=== PATIENT | male | born 1950 | race Caucasian/White ===

== ENCOUNTER 2016-11-15 08:24 | Outpatient (CLI) | payer MEDICARE, BC ==
[2016-11-15 17:54] LABS: BILIRUBIN,URINE NEGATIVE (NEGATIVE); PH,URINE 5.5 PH (5.0-7.5)
[2016-11-15 18:14] LABS: CHOL/HDL RATIO 3.4 (<5.0); CHOLESTEROL 210 mg/dL; HDL CHOLESTEROL 62 mg/dL; LDL/HDL RATIO 2.2 (<3.6); TRIGLYCERIDES 64 mg/dL; VLDL CHOLESTEROL 13 mg/dL
[2016-11-15 18:15] LABS: ALBUMIN/GLOBULIN RATIO 1.4 (1.0-2.2); BUN - BLOOD UREA NITROGEN 17 mg/dL (6-20); CALCIUM 9.1 mg/dL (8.5-10.3); CARBON DIOXIDE - CO2 27 mmol/L (21-32); CHLORIDE 104 mmol/L (101-111); CREATININE 0.9 mg/dL (0.6-1.2); GFR - MDRD 84 (>89); GLUCOSE 105 mg/dL (70-100); POTASSIUM 4.1 mmol/L (3.5-5.0); SODIUM 139 mmol/L (135-145); TOTAL PROTEIN 6.6 g/dL (6.7-8.2)
[2016-11-15 18:16] LABS: HCT - HEMATOCRIT 44.2 % (42.0-52.0); HGB - HEMOGLOBIN 14.7 g/dL (14.0-18.0); MEAN CORPUSCULAR HGB CONC 33.1 g/dL (32.0-36.0); MEAN CORPUSCULAR VOLUME 96.6 fL (80.0-94.0); MEAN PLATELET VOLUME 9.3 fL (7.4-11.4); RED BLOOD COUNT 4.58 10^6/uL (4.70-6.10)
[2016-11-15 18:29] LABS: UR CULTURE IF IND NOT INDICATED; WBC,URINE 0-3 /HPF (0-3)
[2016-11-15 18:36] LABS: PT - PROTHROMBIN TIME 11.3 secs (9.9-12.6)
== END 2016-11-15 08:25 | disposition home or self-care (01) ==
LOC: LAB.S 08:24
PROVIDERS: ATTEND Orthopaedic Surgery
DX: Z01.818 Encounter for other preprocedural examination (principal); N40.0 Benign prostatic hyperplasia without lower urinary tract symptoms; Z13.220 Encounter for screening for lipoid disorders; Z13.1 Encounter for screening for diabetes mellitus
CPT/HCPCS: 36415; 80053; 80061; 81001; 85027; 85610; 85651; 86140; 93005; G0103; 84153; 85025; 87086

== ENCOUNTER 2016-11-15 08:33 | Outpatient (CLI) | payer MEDICARE, BC | END 2016-11-15 08:34 | disposition home or self-care (01) | LOC: RT.S 08:33 | PROVIDERS: ATTEND Orthopaedic Surgery | DX: Z01.810 Encounter for preprocedural cardiovascular examination (principal) | CPT/HCPCS: 93005 ==

== ENCOUNTER 2016-12-31 11:00 | Outpatient (CLI) | payer BC, MEDICARE ==
--- NOTE | 2016-12-31 13:18 | XRAY Report ---
THREE-VIEW RIGHT FOOT: 12/31/2016 CLINICAL INDICATION: Pain. FINDINGS: AP, lateral, oblique views of the right foot demonstrate mild degenerative changes. There is no evidence of acute fracture or dislocation. No radiopaque foreign body is seen in the soft tis sues. IMPRESSION: MILD DEGENERATIVE CHANGES. JOB #: [id number] EXT JOB #:[id number]
== END 2016-12-31 11:01 | disposition home or self-care (01) ==
LOC: DI.S 11:00
PROVIDERS: ATTEND Nurse Practitioner Family
DX: M19.071 Primary osteoarthritis, right ankle and foot (principal)

== ENCOUNTER 2020-06-03 12:10 | Outpatient (CLI) | payer MEDICARE, BC | END 2020-06-03 12:11 | disposition home or self-care (01) | LOC: COV 12:10 | PROVIDERS: ATTEND Family Medicine | DX: R05 Cough (principal); Z20.828 Contact with and (suspected) exposure to other viral communicable diseases; R53.83 Other fatigue ==

== ENCOUNTER 2022-04-14 08:49 | Day surgery (SDC) | payer MEDICARE, BC ==
[2022-04-14] MEDS ORDERED: LACTATED RINGERS 1,000 ML IV ONE ×2 (09:11→10:59)
[2022-04-14] MEDS ORDERED: LIDOCAINE-PF 2% 10 ML AMP SUBQ ONE (10:09)
[2022-04-14] MEDS ORDERED: PROPOFOL 500 MG/50 ML 500 MG/50 ML VIAL ONE (10:10)
--- NOTE | 2022-04-14 10:12 | ANESTHESIA ---
Pre-Anesthesia VS, & Labs - Diagnosis POSITIVE COLOGAURD, EGD - Procedure EGD, COLONOSCOPY Vital Signs: Temp Pulse Resp BP Pulse Ox O2 Flow Rate 36.5 C 68 20 140/83 H 98 0 04/14/22 09:12 04/14/22 09:12 04/14/22 09:12 04/14/22 09:12 04/14/22 09:12 04/14/22 09:12 Height: 6 ft 3 in Weight (kg): 119 kg Body Mass Index: 32.8 BMI Classification: Obese - NPO >8 hours Home Medications and Allergies Home Medications: Ambulatory Orders Rosuvastatin Calcium [Crestor] 5 mg PO DAILY 04/13/22 Biotin 1,000 mcg PO DAILY 01/31/13 Ibuprofen [Advil] 400 mg PO DAILY PRN 01/31/13 Saw [place] Fruit/Zinc Picoli [Saw [place] Capsule] 3 each PO DAILY 01/31/13 Albuterol Sulfate [Proair Hfa] 8.5 gm IH Q6HR PRN 01/09/14 Finasteride 5 mg PO DAILY 01/09/14 Glucosamine/MSM/Chondroitin A [Tzrxloietgd-Edufoyhhz-OHW Cplt] 1 each PO DAILY 01/09/14 Zinc Gluconate [Zinc] 30 mg PO DAILY 01/09/14 Rosuvastatin Calcium [Crestor] 5 mg PO DAILY 04/13/22 Allergies/Adverse Reactions: Allergies Allergy/AdvReac Type Severity Reaction Status Date / Time ciprofloxacin Allergy Intermediate Rash Verified 04/14/22 09:18 gluten AdvReac Unknown Verified 04/14/22 09:18 Tape Allergy Intermediate Rash Uncoded 04/14/22 09:18 Anes History & Medical History - Anesthetic History Anesthesia Complications: reports: No previous complications Family history of Anesthesia Complications: Denies Family history of Malignant Hyperthermia: Denies - Medical History Cardiovascular: reports: High cholesterol, Murmur (MITRAL VALVE PROLAPSE) Pulmonary: reports: Asthma, Other Gastrointestinal: reports: GERD, Other (+ COLOGAURD) Urinary: reports: Benign prostate hypertrophy Neuro: reports: None Musculoskeletal: reports: Osteoarthritis, Gout, Chronic back pain, Other (CSPINE FUSION C5-C7) Endocrine/Autoimmune: reports: None Skin: reports: Rosacea, Other Smoking Status: Never smoker Psychosocial: reports: Alcohol History of Cancer?: No - Surgical History General: reports: Colonoscopy Eyes Ears Nose Throat (EENT): reports: Tonsil/Adenoidectomy Orthopedic: reports: Hip replacement, Knee replacement, Shoulder arthroplasty, Spine surgery Dermatologic: reports: Skin cancer surgery Exam General: Alert, Oriented x3, Cooperative, No acute distress Dental: WNL, Other (GUNTER) Mouth Openin Fingerbreadth Neck Mobility: Reduced Mallampati classification: II Thyromental Distance: 4-6 cm Respiratory: Lungs clear Cardiovascular: Regular rate Mental/Cognitive Status: Alert/Oriented X3, Normal for patient Cognitive Status: Within normal limits Plan Anesthesia Type: General, Total IV Consent for Procedure(s) Verified and Reviewed: Yes Code Status: Attempt Resuscitation ASA classification: 2-Mild systemic disease Is this case an emergency?: No
[2022-04-14] MEDS ORDERED: ePHEDrine 50 MG/ML VIAL IVP ONE (10:46)
--- NOTE | 2022-04-14 11:05 | ANESTHESIA POST OP EVALUATION ---
Anesthesia Post Eval - Post Anesthesia Eval Vitals: Last Vital Signs Temp 36.5 C 04/14/22 11:00 Pulse 82 04/14/22 11:00 Resp 16 04/14/22 11:00 BP 101/58 L 04/14/22 11:00 Pulse Ox 100 04/14/22 11:00 O2 Flow Rate 0 04/14/22 09:12 CV Function Including HR & BP: Stable Pain Control: Satisfactory Nausea & Vomiting: Negative Mental Status: Baseline Respiratory Status: Airway Patent Hydration Status: Satisfactory Anesthesia Complications: None
[2022-04-14 11:57] VITALS: BP 124/63
== END 2022-04-14 08:50 | disposition home or self-care (01) ==
LOC: SDS 08:49
PROVIDERS: ATTEND Surgery
DX: R19.5 Other fecal abnormalities (principal); K64.8 Other hemorrhoids; K21.9 Gastro-esophageal reflux disease without esophagitis; K44.9 Diaphragmatic hernia without obstruction or gangrene; R13.10 Dysphagia, unspecified; E66.9 Obesity, unspecified; Z68.32 Body mass index [BMI] 32.0-32.9, adult; J45.909 Unspecified asthma, uncomplicated
CPT/HCPCS: 43235; 45378; J7120

== ENCOUNTER 2022-07-13 09:42 | Outpatient (CLI) | payer MEDICARE, BC ==
--- NOTE | 2022-07-13 16:01 | Ultrasound Report ---
PROCEDURE: Head or Neck Soft Tissue INDICATIONS: MASS OF NECK TECHNIQUE: Real time scanning was performed of the neck region of interest, with image documentation . COMPARISON: None. FINDINGS: Patient's palpable focus of concern is the left submandibular gland and there is no abnorma lity of the left submandibular gland or other regional abnormality. The right submandibular gland is comparable in size and appearance to the left. IMPRESSION: Normal exam. Patient's focus of palpable concern is a normal left subarticular gland. Reviewed by: Keegan Schrader MD on 07/13/2022 4:00 PM PST Approved by: Keegan Schrader MD on 07/13/2022 4:00 PM PST Station ID: [id number]
== END 2022-07-13 09:43 | disposition home or self-care (01) ==
LOC: DI 09:42
PROVIDERS: ATTEND Nurse Practitioner Family
DX: R22.1 Localized swelling, mass and lump, neck (principal)

== ENCOUNTER 2023-04-15 08:00 | Outpatient (CLI) | payer MEDICARE, BC ==
--- NOTE | 2023-04-16 22:48 | XRAY Report ---
PROCEDURE: Foot 2 View RT INDICATIONS: RIGHT FOOT PAIN TECHNIQUE: 2 views of the foot were acquired. COMPARISON: 12/10/2021 FINDINGS: Bones: No acute fractures or dislocations. Remote fractures can be seen involving the fourth and fi fth metatarsals. No suspicious bony lesions. Incidental note is made of a bipartite medial sesamoid b one. Age-appropriate degenerative changes are seen. Toe alignment abnormalities can be seen. A plantar calcaneal spur is incidentally noted. Soft tissues: There is calcification seen involving the distal Achilles tendon. IMPRESSION: No acute plain film abnormality is seen. Please correlate with focal tenderness. If there is point tenderness (or other clinical concern for a fracture not seen on these plain films) then please consider a dedicated CT study or a short term fo llow up plain film series for further evaluation. Remote fractures can be seen involving the fourth and fifth metatarsals. Toe alignment abnormalities are seen. There is calcification seen involving the distal Achilles tendon, which is attributed to remote teari ng. Reviewed by: Luca Starr MD on 04/16/2023 9:46 PM [place] Approved by: Luca Starr MD on 04/16/2023 9:46 PM [facility] Station ID: [id number]
--- NOTE | 2023-04-16 22:51 | XRAY Report ---
PROCEDURE: Cervical Spine 2 View INDICATIONS: NECK PAIN/FALL TECHNIQUE: 4 view(s) of the cervical spine were acquired. COMPARISON: None. FINDINGS: Bones: No fractures or dislocations to the superior T1 level. The lateral masses of C1 appear intac t on the odontoid view. No suspicious bony lesions. Anterior fusion plate can be seen from C5 through C7. There is corpectomy with a a fibular strut fly t at C6. No findings of hardware failure or hardware loosening can be seen. At least moderate disc space narrowing can be seen C3-4 and at C4-C5. Soft tissues: No prevertebral soft tissue swelling. The visualized pulmonary apices are unremarkab le. IMPRESSION: No acute plain film abnormality is seen. Intact appearing C5-C7 anterior fixation hardware. Focal degenerative change can be seen at C3-C4 and at C4-C5. If it would be helpful for clinical management decision making, please consider a dedicated cervical spine MRI for further evaluation (assuming that there is no contraindication). Reviewed by: Luca Starr MD on 04/16/2023 9:50 PM [facility] Approved by: Luca Starr MD on 04/16/2023 9:50 PM [facility] Station ID: [id number]
== END 2023-04-15 23:59 | disposition home or self-care (01) ==
LOC: DI.S 08:00
PROVIDERS: ATTEND Physician Assistant
DX: M47.812 Spondylosis without myelopathy or radiculopathy, cervical region (principal); M79.671 Pain in right foot

== ENCOUNTER 2023-05-26 08:39 | Outpatient (CLI) | payer MEDICARE, BC ==
[2023-05-26 14:45] LABS: BASOPHILS % (AUTO) 0.6 %; EOSINOPHILS # (AUTO) 0.2 10^3/uL (0.0-0.7); EOSINOPHILS % (AUTO) 2.9 %; HCT - HEMATOCRIT 45.7 % (42.0-52.0); HGB - HEMOGLOBIN 14.6 g/dL (14.0-18.0); LYMPHOCYTES # (AUTO) 1.3 10^3/uL (1.5-3.5); LYMPHOCYTES % (AUTO) 17.3 %; MEAN CORPUSCULAR HGB CONC 31.9 g/dL (32.0-36.0); MEAN CORPUSCULAR VOLUME 100.2 fL (80.0-94.0); MEAN PLATELET VOLUME 10.9 fL (7.4-11.4); MONOCYTES # (AUTO) 0.5 10^3/uL (0.0-1.0); MONOCYTES % (AUTO) 6.4 %; NEUTROPHILS # (AUTO) 5.2 10^3/uL (1.5-6.6); NEUTROPHILS % (AUTO) 72.5 %; PLT - PLATELET COUNT 250 10^3/uL (130-450); RED BLOOD COUNT 4.56 10^6/uL (4.70-6.10); RED CELL DISTRIBUTION WIDTH 13.4 % (12.0-15.0); WHITE BLOOD COUNT 7.2 x10^3/uL (4.8-10.8)
[2023-05-26 15:33] LABS: ALBUMIN/GLOBULIN RATIO 1.5 (1.0-2.2); BILIRUBIN,TOTAL 0.5 mg/dL (0.2-1.0); CALCIUM 9.1 mg/dL (8.5-10.3); CREATININE 0.9 mg/dL (0.6-1.3); POTASSIUM 4.4 mmol/L (3.5-4.5); TOTAL PROTEIN 6.7 g/dL (6.4-8.9)
== END 2023-05-26 08:40 | disposition home or self-care (01) ==
LOC: LAB.S 08:39
PROVIDERS: ATTEND Internal Medicine
DX: D64.9 Anemia, unspecified (principal); M62.838 Other muscle spasm
CPT/HCPCS: 36415; 80053; 85025

== ENCOUNTER 2023-06-04 09:30 | Outpatient (CLI) | payer MEDICARE, BC ==
--- NOTE | 2023-06-05 11:40 | CT Report ---
PROCEDURE: HEAD WO INDICATIONS: HEADACHE TECHNIQUE: Noncontrast 4.5 mm thick angled axial sections acquired from the foramen magnum to the vertex. For r adiation dose reduction, the following was used: automated exposure control, adjustment of mA and/or kV according to patient size. COMPARISON: None. FINDINGS: Image quality: Excellent. CSF spaces: Basal cisterns are patent. No extra-axial fluid collections. Ventricles are normal in size and shape. Brain: No midline shift. No intracranial masses or hemorrhage. Ashraf-white matter interface is norm al. Vasculature: Calcification of the bilateral cavernous carotids. Skull and face: Calvarium and visualized facial bones are intact, without suspicious lesions. Sinuses: Trace mucosal thickening in the bilateral maxillary and ethmoid sinuses. Remainder of the si nuses and mastoids are clear. IMPRESSION: 1.No acute intracranial pathology. 2.Trace mucosal thickening in the bilateral maxillary and ethmoid sinuses. Reviewed by: Ilana Molina MD on 06/05/2023 11:39 AM PST Approved by: Ilana Molina MD on 06/05/2023 11:39 AM PST Station ID: [id number]
--- NOTE | 2023-06-05 11:45 | CT Report ---
PROCEDURE: CERVICAL SPINE WO INDICATIONS: NECK PAIN TECHNIQUE: Noncontrast 3 mm thick sections acquired from the skull base to the T4 level. Sagittal and coronal r eformats were then constructed. For radiation dose reduction, the following was used: automated exp osure control, adjustment of mA and/or kV according to patient size. COMPARISON: MRI cervical spine on July 17, 2021. FINDINGS: Image quality: Excellent. Bones: No fractures or dislocations. Anterior fusion hardware from C5 to C7 is intact with no perih ardware lucency to suggest hardware loosening. Straightening of the normal cervical lordosis. Moderat e multilevel degenerative changes of the spine with anterior osteophytosis, disc height loss and face t/uncal hypertrophy. Multilevel osseous neural foraminal narrowing. Visualized superior ribs are inta ct. Soft tissues: Prevertebral soft tissues are normal in thickness. No paravertebral hematomas. No ap ical pneumothoraces. Thyroid is unremarkable. IMPRESSION: 1.No acute, displaced fracture or traumatic subluxation. If clinical symptoms persist, consider MRI f or further evaluation. 2.Anterior fusion hardware from C5 to C7 is intact without complication. 3.Moderate multilevel degenerative changes of the spine, as described above. Reviewed by: Ilana Molina MD on 06/05/2023 11:44 AM PST Approved by: Ilana Molina MD on 06/05/2023 11:44 AM PST Station ID: [id number]
== END 2023-06-04 09:31 | disposition home or self-care (01) ==
LOC: DI 09:30
PROVIDERS: ATTEND Internal Medicine
DX: M47.812 Spondylosis without myelopathy or radiculopathy, cervical region (principal); G44.309 Post-traumatic headache, unspecified, not intractable

== ENCOUNTER 2023-06-13 10:01 | Outpatient (CLI) | payer MEDICARE, BC | END 2023-06-13 10:02 | disposition home or self-care (01) | LOC: LAB.S 10:01 | PROVIDERS: ATTEND Internal Medicine | DX: D64.9 Anemia, unspecified (principal) | CPT/HCPCS: 36415; 82607; 82728; 83540; 84466 ==

== ENCOUNTER 2023-06-27 10:34 | Outpatient (CLI) | payer MEDICARE, BC ==
[2023-06-27 15:02] LABS: ABSOLUTE RETICS # AUTO 0.057 10^6/uL (0.020-0.110); RED BLOOD COUNT 4.71 10^6/uL (4.70-6.10)
[2023-06-27 15:50] LABS: FERRITIN 105.5 ng/mL (23.9-336.2)
== END 2023-06-27 10:35 | disposition home or self-care (01) ==
LOC: LAB.S 10:34
PROVIDERS: ATTEND Internal Medicine
DX: D53.9 Nutritional anemia, unspecified (principal)
CPT/HCPCS: 36415; 82607; 82728; 83090; 83540; 83921; 84466; 85045

== ENCOUNTER 2023-06-29 12:34 | Outpatient (CLI) | payer MEDICARE, BC | END 2023-06-29 12:35 | disposition home or self-care (01) | LOC: DI 12:34 | PROVIDERS: ATTEND Internal Medicine | DX: I08.0 Rheumatic disorders of both mitral and aortic valves (principal); I77.810 Thoracic aortic ectasia | CPT/HCPCS: 93307 ==

== ENCOUNTER 2023-06-29 13:39 | Outpatient (CLI) | payer MEDICARE, BC ==
--- NOTE | 2023-06-29 17:09 | Ultrasound Report ---
PROCEDURE: Carotid Doppler Complete INDICATIONS: VERTIGO TECHNIQUE: Color and pulse Doppler interrogation was performed of both carotid systems, with image documentation and velocity measurements. COMPARISON: None. FINDINGS: Right side: Brachial blood pressure: 152/92 mm Hg. Common carotid artery peak systolic velocity: 56.95 cm/sec. Internal carotid artery peak systolic velocity: 80.25 cm/sec. Internal carotid artery end diastolic velocity: 27.18 cm/sec. External carotid artery peak systolic velocity: 75.48 cm/sec. ICA/CCA peak systolic ratio: 1.4 . Ashraf scale imaging description: Mild atherosclerotic plaques are seen at the carotid bifurcation Percent internal carotid artery stenosis: Less than 50%. Vertebral artery: Flow direction is antegrade. Left side: Brachial blood pressure: 135/97 mm Hg. Common carotid artery peak systolic velocity: 69.9 cm/sec. Internal carotid artery peak systolic velocity: 70.3 cm/sec. Internal carotid artery end diastolic velocity: 23.7 cm/sec. External carotid artery peak systolic velocity: 59.97 cm/sec. ICA/CCA peak systolic ratio: 1.0 . Ashraf scale imaging description: Mild atherosclerotic plaques are noted at the carotid bifurcation. Percent internal carotid artery stenosis: Less than 50%. Vertebral artery: Flow direction is antegrade. IMPRESSION: 1. In the right internal carotid artery, there is less than 50 percent stenosis based on peak systoli c velocity criteria. 2. In the left internal carotid artery, there is less than 50 percent stenosis based on peak systolic velocity criteria. 3. Antegrade blood flow within the right vertebral artery. 4. Antegrade blood flow within the left vertebral artery. The estimate of stenosis included in the report of the imaging study was calculated using the [facility]-end orsed standards of carotid artery stenosis. Reviewed by: Tacos Isidro MD on 06/29/2023 5:07 PM PST Approved by: Tacos Isidro MD on 06/29/2023 5:07 PM PST Station ID: [id number]
== END 2023-06-29 13:40 | disposition home or self-care (01) ==
LOC: DI 13:39
PROVIDERS: ATTEND Internal Medicine
DX: R42 Dizziness and giddiness (principal); I65.23 Occlusion and stenosis of bilateral carotid arteries; I08.0 Rheumatic disorders of both mitral and aortic valves; I77.810 Thoracic aortic ectasia
CPT/HCPCS: 93307; 93880

== ENCOUNTER 2023-07-23 08:00 | Outpatient (CLI) | payer MEDICARE, BC ==
--- NOTE | 2023-07-23 13:41 | XRAY Report ---
PROCEDURE: Chest 2V INDICATIONS: ACUTE COUGH TECHNIQUE: 2 views of the chest were acquired. COMPARISON: None. FINDINGS: Surgical changes and devices: None. Lungs and pleura: No pleural effusions or pneumothorax. Lungs are clear. Mediastinum: Mediastinal contours appear normal. Heart size is normal. Bones and chest wall: No suspicious bony lesions. Overlying soft tissues appear unremarkable. IMPRESSION: No acute cardiopulmonary process. Reviewed by: Sarah Dave MD on 07/23/2023 1:40 PM PST Approved by: Sarah Dave MD on 07/23/2023 1:40 PM [facility] Station ID: [id number]
== END 2023-07-23 23:59 | disposition home or self-care (01) ==
LOC: DI.S 08:00
PROVIDERS: ATTEND Registered Nurse
DX: R05.1 Acute cough (principal)

== ENCOUNTER 2023-08-24 09:54 | Outpatient (CLI) | payer MEDICARE, BC ==
[2023-08-24 15:00] LABS: BASOPHILS # (AUTO) 0.1 10^3/uL (0.0-0.1); EOSINOPHILS # (AUTO) 0.2 10^3/uL (0.0-0.7); EOSINOPHILS % (AUTO) 3.3 %; HCT - HEMATOCRIT 46.5 % (42.0-52.0); HGB - HEMOGLOBIN 14.5 g/dL (14.0-18.0); LYMPHOCYTES # (AUTO) 1.2 10^3/uL (1.5-3.5); MEAN CORPUSCULAR HEMOGLOBIN 30.9 pg (27.0-31.0); MEAN CORPUSCULAR HGB CONC 31.2 g/dL (32.0-36.0); MEAN CORPUSCULAR VOLUME 98.9 fL (80.0-94.0); MEAN PLATELET VOLUME 10.7 fL (7.4-11.4); MONOCYTES # (AUTO) 0.4 10^3/uL (0.0-1.0); MONOCYTES % (AUTO) 6.8 %; NEUTROPHILS # (AUTO) 4.4 10^3/uL (1.5-6.6); NEUTROPHILS % (AUTO) 69.7 %; PLT - PLATELET COUNT 253 10^3/uL (130-450); RED CELL DISTRIBUTION WIDTH 13.5 % (12.0-15.0); WHITE BLOOD COUNT 6.3 x10^3/uL (4.8-10.8)
[2023-08-24 15:47] LABS: THYROID STIMULATING HORMONE 1.78 uIU/mL (0.34-5.60)
[2023-08-24 15:50] LABS: ALBUMIN/GLOBULIN RATIO 1.6 (1.0-2.2); ALKALINE PHOSPHATASE 53 IU/L (42-121); ALT ALANINE AMINOTRANSFERASE 37 IU/L (10-60); AST ASPARTATE AMINOTRANSFERASE 38 IU/L (10-42); BILIRUBIN,TOTAL 0.6 mg/dL (0.2-1.0); BUN - BLOOD UREA NITROGEN 19 mg/dL (6-20); CALCIUM 9.5 mg/dL (8.5-10.3); CARBON DIOXIDE - CO2 30 mmol/L (21-32); CHLORIDE 106 mmol/L (101-111); CREATININE 0.8 mg/dL (0.6-1.3); CRP - C-REACTIVE PROTEIN < 0.5 mg/dL (<0.5); GFR - MDRD 94 (>89); GLUCOSE 100 mg/dL (74-104); LIPASE 22 U/L (11-82); POTASSIUM 4.7 mmol/L (3.5-4.5); SODIUM 139 mmol/L (135-145); TOTAL PROTEIN 6.5 g/dL (6.4-8.9)
== END 2023-08-24 09:55 | disposition home or self-care (01) ==
LOC: DI.S 09:54
PROVIDERS: ATTEND Registered Nurse
DX: R10.11 Right upper quadrant pain (principal)
CPT/HCPCS: 36415; 80053; 83690; 84443; 85025; 86140

== ENCOUNTER 2023-08-30 19:41 | Outpatient (CLI) | payer MEDICARE, BC ==
--- NOTE | 2023-08-31 09:30 | Ultrasound Report ---
PROCEDURE: Abdomen Limited INDICATIONS: RUQ ABD PAIN TECHNIQUE: Real-time focused scanning was performed of the abdomen, with image documentation. COMPARISONS: None. FINDINGS: Exam is markedly limited secondary to patient body habitus and bowel gas. Liver: Liver is normal in size and homogeneous in echotexture. Liver parenchyma is coarse in echotex ture. Main portal vein is patent with hepatopedal flow. No sonographic evidence of a solid mass. Know n anechoic simple cyst in the left hepatic lobe measuring 1.8 Gallbladder: Unremarkable. Biliary ducts: Intrahepatic bile ducts are non-dilated. Extrahepatic bile duct caliber measures 3.9 mm (approximately). Normal is 6-7 mm or less in diameter, or 10 mm or less post-cholecystectomy. Pancreas: Not well seen secondary to bowel gas. Right kidney: Normal in size and echotexture. Right kidney measures 11.5 cm long. No hydronephrosis or nephrolithiasis. No solid masses. No complex renal cystic lesions which require follow-up. Miscellaneous: No free abdominal fluid. IMPRESSION: Exam is markedly limited secondary to patient body habitus and increased bowel gas. 1.Liver parenchyma is coarse in echotexture which may be seen in the setting of parenchymal disease s uch as steatosis/cirrhosis. 2.Pancreas is not well seen secondary to bowel gas. If clinical symptoms persist, consider cross-sectional imaging for further evaluation. Reviewed by: Ilana Molina MD on 08/31/2023 9:29 AM PDT Approved by: Ilana Molina MD on 08/31/2023 9:29 AM PDT Station ID: [id number]
== END 2023-08-30 19:42 | disposition home or self-care (01) ==
LOC: DI 19:41
PROVIDERS: ATTEND Registered Nurse
DX: R10.11 Right upper quadrant pain (principal)

== ENCOUNTER 2023-09-26 11:45 | Outpatient (CLI) | payer MEDICARE, BC ==
[2023-09-26 12:19] LABS: CREATININE 0.9 mg/dL (0.6-1.3)
[2023-09-26] MEDS ORDERED: iohexoL-300 100 ML VIAL ONE (12:45)
[2023-09-26] MEDS ORDERED: DIATRIZOATE MEGLU/DIATRIZO SOD 30 ML BOTTLE PO ONE (12:45)
[2023-09-26] MEDS: iohexoL-300 100 ML VIAL IVP ONE (14:10)
[2023-09-26] MEDS: DIATRIZOATE MEGLU/DIATRIZO SOD 30 ML BOTTLE PO ONE (14:11)
--- NOTE | 2023-09-26 15:38 | CT Report ---
PROCEDURE: Abdomen/Pelvis W INDICATIONS: RUQ ABDOMINAL PAIN CONTRAST: Omni 300 100ml TECHNIQUE: After the administration of intravenous contrast, a CT scan of the abdomen and pelvis was performed. Images were recorded and evaluated at appropriate window settings. Reformats: coronal and sagittal. F or radiation dose reduction, the following was used: automated exposure control, adjustment of mA and /or kV according to patient size. COMPARISON: Abdominal ultrasound 08/30/2023. FINDINGS: Image quality: Diagnostic. Lower chest: Coronary artery calcifications. No pleural effusion. Liver: No solid mass. Multiple small cyst. Gallbladder and biliary tree: No radiopaque stones or wall thickening. No biliary dilation. Spleen: No splenomegaly. Pancreas: No pancreatic ductal dilation. Adrenals: No adrenal nodule. Kidneys and ureters: No hydronephrosis. No renal cystic lesion which requires follow up. Small peripe lvic cysts. No solid mass. Stomach, bowel and peritoneum: No bowel distension. No pathologic free fluid. The appendix is not brijesh ntified. Lymph nodes: No central or retroperitoneal adenopathy. Vessels: No infrarenal aortic aneurysm. PELVIS Reproductive organs: Unremarkable. Beam hardening artifact. Bladder: No abnormal wall thickening, accounting for underdistention. Pelvic lymph nodes: No pelvic adenopathy by size criteria. Bones: No aggressive osseous abnormality. Bilateral hip arthroplasties. DDD most pronounced at L5-S1. Other: No significant ventral or inguinal hernia. IMPRESSION: No acute abnormality identified. No free fluid. Reviewed by: Brian Santana MD on 09/26/2023 3:37 PM PDT Approved by: Brian Santana MD on 09/26/2023 3:37 PM PDT Station ID: [id number]
== END 2023-09-26 11:46 | disposition home or self-care (01) ==
LOC: LAB 11:45
PROVIDERS: ATTEND Internal Medicine
DX: R10.11 Right upper quadrant pain (principal)
CPT/HCPCS: 36415; 82565